=== PATIENT | female | born 1990 | race Caucasian/White ===

== ENCOUNTER 2019-10-28 08:11 | Outpatient (CLI) | payer OTHER ==
[~2019-10-28] VITALS: Ht 165.1 cm; Wt 69.1 kg
[2019-10-28 08:18] VITALS: BP 91/54
[2019-10-28] MEDS ORDERED: morphine SULFATE 10 MG/ML, 1ML ONE (08:36)
[2019-10-28 08:46] LABS: MICROSCOPIC AUTO
[2019-10-28] MEDS ORDERED: MORPHINE SULFATE 4 MG/ML, 1ML ONE (08:53)
[2019-10-28 09:00] LABS: BASOPHILS # (AUTO) 0.05 x10^3/uL (0-0.1); BASOPHILS % (AUTO) 1 % (0-1); EOSINOPHILS # (AUTO) 0.07 x10^3/uL (0-0.4); EOSINOPHILS % (AUTO) 1 % (1-7); LYMPHOCYTES # (AUTO) 1.54 x10^3/uL (1-3.4); LYMPHOCYTES % (AUTO) 16 % (22-44); MD NO; MEAN CORPUSCULAR HEMOGLOBIN 31.3 pg (27.0-34.8); MEAN CORPUSCULAR HGB CONC 33.1 g/dL (32.4-35.8); MEAN CORPUSCULAR VOLUME 94.4 fL (80-100); MEAN PLATELET VOLUME 9.3 fL (7.4-10.4); MONOCYTES # (AUTO) 0.52 x10^3/uL (0.2-0.8); MONOCYTES % (AUTO) 5 % (2-9); NEUTROPHILS # (AUTO) 7.38 x10^3/uL (1.8-6.8); NEUTROPHILS % (AUTO) 77 % (42-75); PLATELET COUNT 254 x10^3/uL (130-400); RED BLOOD COUNT 3.37 x10^6/uL (3.82-5.3); RED CELL DISTRIBUTION WIDTH 12.6 % (9.6-15.2)
[2019-10-28] MEDS ORDERED: LACTATED RINGERS 1,000 ML IV SCH (09:00)
[2019-10-28] MEDS ORDERED: LACTATED RINGERS 500 ML IVBOLUS ONE (09:00)
[2019-10-28] MEDS ORDERED: morphine SULFATE 10 MG/ML, 1ML IVPush PRN ×2 (09:00)
[2019-10-28] MEDS ORDERED: ONDANSETRON 2MG/ML, 2ML IVPush PRN (09:00)
[2019-10-28] MEDS ORDERED: OXYcodone/APAP 5/325MG TABLET PO ONE (09:00)
[2019-10-28 09:08] LABS: ALANINE AMINOTRANSFERASE 18 U/L (12-78); ALBUMIN 2.9 g/dL (3.4-5.0); ANION GAP 7 mmol/L (5-15); CALCIUM 8.2 mg/dL (8.5-10.1); CHLORIDE 110 mmol/L (98-107); CREATININE 0.59 mg/dL (0.55-1.02)
[2019-10-28 09:10] LABS: ALKALINE PHOSPHATASE 46 U/L (45-117); BILIRUBIN,TOTAL 0.8 mg/dL (0.2-1.0); TOTAL PROTEIN 6.3 g/dL (6.4-8.2)
[2019-10-28] MEDS ORDERED: ACETAMINOPHEN 500 MG TABLET ONE (09:16)
[2019-10-28] MEDS ORDERED: PREN1TAB60 PO (09:21)
[2019-10-28] MEDS ORDERED: b12 (09:21)
[2019-10-28] MEDS ORDERED: FOLI-17 PO (09:21)
[2019-10-28] MEDS ORDERED: ACETAMINOPHEN 500 MG TABLET PO ONE (09:30)
== END 2019-10-28 10:26 | disposition home or self-care (01) ==
LOC: LDOP 08:11
PROVIDERS: ATTEND Obstetrics & Gynecology
DX: O26.892 Other specified pregnancy related conditions, second trimester (principal); M54.9 Dorsalgia, unspecified; Z3A.21 21 weeks gestation of pregnancy
CPT/HCPCS: 36415; 76770; 80053; 81001; 85025; 87086; 96361; 96374; 99201; J2270; J7120; 96360; G0463

== ENCOUNTER 2020-02-20 09:18 | Outpatient (CLI) | payer OTHER ==
[~2020-02-20] VITALS: Ht 165.1 cm; Wt 80.5 kg
[~2020-02-20 09:18] MED LIST: FOLI-17 PO; PREN1TAB60 PO; b12
[2020-02-20 09:47] VITALS: BP 96/56
== END 2020-02-20 10:20 | disposition home or self-care (01) ==
LOC: LDOP 09:18
PROVIDERS: ATTEND Obstetrics & Gynecology
DX: O26.893 Other specified pregnancy related conditions, third trimester (principal); R10.9 Unspecified abdominal pain; Z3A.38 38 weeks gestation of pregnancy
CPT/HCPCS: 59025

== ENCOUNTER 2020-02-26 11:33 | Inpatient (IN) | payer OTHER ==
[~2020-02-26] VITALS: Ht 165.1 cm; Wt 81.8 kg
[2020-02-28] MEDS ORDERED: MISOPROSTOL 25 MCG TABLET ONE (07:43)
[2020-02-28 08:30] LABS: BASOPHILS % (AUTO) 0 % (0-1); EOSINOPHILS % (AUTO) 1 % (1-7); LYMPHOCYTES % (AUTO) 15 % (22-44); MEAN CORPUSCULAR HEMOGLOBIN 30.4 pg (27.0-34.8); MONOCYTES % (AUTO) 6 % (2-9); NEUTROPHILS % (AUTO) 78 % (42-75); PLATELET COUNT 183 x10^3/uL (130-400); RED BLOOD COUNT 3.54 x10^6/uL (3.82-5.3)
[2020-02-28] MEDS ORDERED: OXYTOCIN 30U/ 0.9% NaCL 500ML 500 ML IV PRN (08:30)
[2020-02-28] MEDS ORDERED: FENTANYL/BUPIV./NS/PF 250 ML EPIDCONT SCH ×2 (08:30→18:00)
[2020-02-28] MEDS ORDERED: MISOPROSTOL 25 MCG TABLET VG PRN (08:30)
[2020-02-28] MEDS ORDERED: TERBUTALINE 1 MG/ML, 1ML IVPush PRN (08:30)
[2020-02-28] MEDS ORDERED: TERBUTALINE 1 MG/ML, 1ML SQ PRN (08:30)
[2020-02-28] MEDS ORDERED: CALCIUM CARBONATE 500 MG TAB.CHEW PO PRN (08:30)
[2020-02-28] MEDS ORDERED: FENTANYL PF 100 MCG/2ML IVPush PRN (08:30)
[2020-02-28] MEDS ORDERED: ONDANSETRON 2MG/ML, 2ML IVPush PRN ×2 (08:30→18:00)
[2020-02-28] MEDS ORDERED: OXYTOCIN 30U/ 0.9% NaCL 500ML 500 ML IV ONE (08:30)
[2020-02-28] MEDS: LACTATED RINGERS 1,000 ML IV SCH ×2 (08:33→14:29)
[2020-02-28 08:49] LABS: MD NO
[2020-02-28] MEDS ORDERED: FENTANYL PF 500 MCG, BUPIVACAINE/PF 0.5%, 30ML 62.5 ML in SODIUM CHLORIDE 0.9% 177.5 ML EPIDCONT SCH (09:00)
[2020-02-28] MEDS ORDERED: NEWBORN KIT ONE (09:18)
[2020-02-28] MEDS ORDERED: OXYTOCIN 30U/ 0.9% NaCL 500ML 500 ML ONE (12:45)
[2020-02-28] MEDS ORDERED: MISOPROSTOL 200 MCG TABLET ONE (12:45)
[2020-02-28] MEDS ORDERED: LIDOCAINE 1%, 20ML ONE (12:45)
[2020-02-28] MEDS ORDERED: ACYC-113 PO (15:49)
[2020-02-28] MEDS ORDERED: FENTANYL PF 100 MCG/2ML ONE (15:58)
[2020-02-28] MEDS ORDERED: BUPIVACAINE 0.25% ONE (15:58)
[2020-02-28] MEDS: D5%-LACTATED RINGERS 1,000 ML IV SCH ×2 (16:30→17:50)
[2020-02-28] MEDS ORDERED: EPHEDRINE 50 MG/ML, 1ML IVPush PRN (18:00)
[2020-02-28] MEDS ORDERED: LACTATED RINGERS 1,000 ML IV SCH (18:00)
[2020-02-28] MEDS ORDERED: LACTATED RINGERS 1,000 ML IVBOLUS PRN (18:00)
[2020-02-28] MEDS ORDERED: CALCIUM CARBONATE 500 MG TAB.CHEW ONE (18:44)
[2020-02-29] MEDS: D5%-LACTATED RINGERS 1,000 ML IV SCH ×2 (00:30→08:30)
[2020-02-29] MEDS: LACTATED RINGERS 1,000 ML IV SCH ×2 (00:30→08:30)
[2020-02-29] MEDS ORDERED: BUPIVACAINE 0.25% ONE (00:43)
[2020-02-29 02:20] VITALS: BP 102/57
[2020-02-29] MEDS ORDERED: ACETAMINOPHEN 325 MG TABLET PO PRN ×2 (03:00)
[2020-02-29] MEDS ORDERED: MISOPROSTOL 200 MCG TABLET PR PRN (03:00)
[2020-02-29] MEDS ORDERED: SIMETHICONE 80 MG CHEW TAB PO PRN (03:00)
[2020-02-29] MEDS ORDERED: METHYLERGONOVINE 0.2 MG/ML IM PRN (03:00)
[2020-02-29] MEDS ORDERED: OXYcodone/APAP 5/325MG TABLET PO PRN ×2 (03:00)
[2020-02-29] MEDS: OXYTOCIN 30U/ 0.9% NaCL 500ML 500 ML IV SCH ×3 (03:00→20:56)
[2020-02-29] MEDS ORDERED: ONDANSETRON 2MG/ML, 2ML IV PRN (03:00)
[2020-02-29 07:54] VITALS: BP 111/76
[2020-02-29] MEDS: IBUPROFEN 600 MG TABLET PO PRN ×2 (08:43→19:51)
[2020-02-29] MEDS: DOCUSATE 100 MG CAPSULE PO PRN (08:43)
[2020-02-29] MEDS: PRENATAL VIT/IRON/FA 1 EACH TABLET PO SCH (08:43)
[2020-02-29 09:51] LABS: BASOPHILS % (AUTO) 0 % (0-1); EOSINOPHILS % (AUTO) 0 % (1-7); LYMPHOCYTES % (AUTO) 8 % (22-44); MEAN CORPUSCULAR HEMOGLOBIN 30.2 pg (27.0-34.8); MEAN CORPUSCULAR HGB CONC 33.7 g/dL (32.4-35.8); MONOCYTES % (AUTO) 7 % (2-9); NEUTROPHILS % (AUTO) 84 % (42-75); PLATELET COUNT 190 x10^3/uL (130-400); RED BLOOD COUNT 3.63 x10^6/uL (3.82-5.3); RED CELL DISTRIBUTION WIDTH 19.3 % (9.6-15.2)
[2020-02-29 09:52] LABS: MD NO
[2020-02-29 12:45] VITALS: BP 105/71
[2020-02-29 20:00] VITALS: BP 106/71
[2020-03-01 00:05] VITALS: BP 103/69
[2020-03-01 07:55] VITALS: BP 98/61
[2020-03-01] MEDS: PRENATAL VIT/IRON/FA 1 EACH TABLET PO SCH (08:58)
[2020-03-01] MEDS: DOCUSATE 100 MG CAPSULE PO PRN (08:58)
[2020-03-01] MEDS: OXYTOCIN 30U/ 0.9% NaCL 500ML 500 ML IV SCH (09:00)
[2020-03-01] MEDS ORDERED: IBUP-1222 PO (09:57)
[2020-03-01] MEDS: IBUPROFEN 600 MG TABLET PO PRN (11:17)
== END 2020-03-01 12:35 | disposition home or self-care (01) | DRG 807 ==
LOC: LDIP 02-28 07:29 → 2NW 02-29 03:42
PROVIDERS: ADMIT Obstetrics & Gynecology; ATTEND Obstetrics & Gynecology
PROC: 10E0XZZ Delivery of Products of Conception, External Approach (ICD-10-PCS; principal; 2020-02-29)
PROC: 0KQM0ZZ Repair Perineum Muscle, Open Approach (ICD-10-PCS; 2020-02-29)
PROC: 10907ZC Drainage of Amniotic Fluid, Therapeutic from Products of Conception, Via Natural or Artificial Opening (ICD-10-PCS; 2020-02-29)
PROC: 10H07YZ Insertion of Other Device into Products of Conception, Via Natural or Artificial Opening (ICD-10-PCS; 2020-02-29)
PROC: 3E0R3BZ Introduction of Anesthetic Agent into Spinal Canal, Percutaneous Approach (ICD-10-PCS; 2020-02-29)
PROC: 00HU33Z Insertion of Infusion Device into Spinal Canal, Percutaneous Approach (ICD-10-PCS; 2020-02-29)
PROC: 3E033VJ Introduction of Other Hormone into Peripheral Vein, Percutaneous Approach (ICD-10-PCS; 2020-02-29)
DX: O69.81X0 Labor and delivery complicated by cord around neck, without compression, not applicable or unspecified (principal); Z37.0 Single live birth; Z20.828 Contact with and (suspected) exposure to other viral communicable diseases; O76 Abnormality in fetal heart rate and rhythm complicating labor and delivery; O70.1 Second degree perineal laceration during delivery; Z3A.39 39 weeks gestation of pregnancy; Z83.3 Family history of diabetes mellitus; Z91.018 Allergy to other foods
CPT/HCPCS: 36415; J7121; 82803; 85025; 86592; 86850; 86900; G0378; J2590; J7120; U0003

== ENCOUNTER 2020-05-23 10:18 | Emergency (ER) | payer OTHER ==
[~2020-05-23] VITALS: Ht 165.1 cm; Wt 74.9 kg
[~2020-05-23 10:18] MED LIST changes: +ACYC-113 PO; -FOLI-17 PO; +FOLI1TAB32 PO; +IBUP-1222 PO
[2020-05-23 10:21] VITALS: BP 121/53
--- NOTE | 2020-05-23 10:30 | NUR ---
PT BROUGHT BACK TO ROOM FROM TRIAGE. PT CO RECTAL BLEEDING AND ABDOMINAL PAIN. PT STATED THAT THIS MORNING SHE HAD A BM AND NOTICED BRIGHT RED BLOOD WITH HER STOOL AND WAS EXPERIENCING ABDOMINAL PAIN AND SOME NAUSEA. PT STATED THAT SHE HER LAST BM PRIOR TO THIS MORNING WAS ON FRIDAY. PT HAD RECENT VAGINAL DELIVERY 11 WEEKS AGO. PT STATED THAT HER VAGINAL BLEEDING STOPPED ABOUT 9 WEEKS AGO.
--- NOTE | 2020-05-23 10:50 | NUR ---
ER MD AT BEDSIDE FOR RECTAL EXAM
[2020-05-23] MEDS ORDERED: ONDANSETRON ODT 4 MG ONE (10:53)
[2020-05-23] MEDS ORDERED: ONDANSETRON ODT 4 MG PO ONE (11:00)
--- NOTE | 2020-05-23 11:23 | NUR ---
DISCHARGE INSTRUCTIONS REVIEWED WITH PT. ALL QUESTIONS ANSWERED AT THIS TIME.
== END 2020-05-23 11:26 | disposition home or self-care (01) ==
LOC: ED 11:07
DX: K60.0 Acute anal fissure (principal); K62.5 Hemorrhage of anus and rectum; R11.0 Nausea; K62.89 Other specified diseases of anus and rectum
CPT/HCPCS: 99283; Q0162